=== PATIENT | female | born 1965 | race African-American/Black ===

== ENCOUNTER 2023-05-10 15:30 | Emergency (ER) | payer MEDICAID ==
[~2023-05-10] VITALS: Ht 165.1 cm; Wt 65.0 kg
[~2023-05-10 15:30] MED LIST: IBUPROFEN
[2023-05-10 15:40] VITALS: BP 139/91; PULSE 60; RESP 16; TEMP 98.8; O2SAT 99
[2023-05-10] MEDS ORDERED: SODIUM CHLORIDE 0.9% 1,000 ML IV ONE (16:15)
[2023-05-10] MEDS ORDERED: METOCLOPRAMIDE HCL 10MG/2ML VIAL IV ONE (18:30)
[2023-05-10] MEDS ORDERED: METOCLOPRAMIDE HCL 10MG/2ML VIAL IV NR (18:30)
[2023-05-10] MEDS ORDERED: MECLIZINE 25MG TABLET PO ONE (18:30)
[2023-05-10 18:42] LABS: CLARITY URINE CLEAR (CLEAR); COLOR URINE YELLOW (YELLOW); GLUCOSE URINE NEGATIVE (NEGATIVE); KETONES URINE TRACE (NEGATIVE); LEUKOCYTE ESTERASE URINE 1+ (NEGATIVE); NITRITE URINE NEGATIVE (NEGATIVE); OCCULT BLOOD URINE 3+ (NEGATIVE); PH URINE 6.5 (4.5-8.0); PROTEIN URINE TRACE (NEGATIVE); SPECIFIC GRAVITY URINE 1.017 (1.005-1.030)
[2023-05-10 18:45] LABS: SQUAMOUS EPITHELIAL CELL URINE 1+ /lpf (RARE/1+); YEAST URINE NONE SEEN
[2023-05-10] MEDS ORDERED: MECLIZINE 12.5MG TABLET PO NR (19:15)
[2023-05-10 19:34] LABS: BASOPHILS % 0.2 % (0.0-2.0); EOSINOPHILS % 0.1 % (0.0-5.0); HEMATOCRIT. 38.3 % (36.0-48.0); HEMOGLOBIN. 12.9 g/dL (12.0-16.0); LYMPHOCYTES % 13.5 % (20.0-50.0); MEAN CORPUSCULAR HEMOGLOBIN 31.5 pg (28.0-32.0); MEAN CORPUSCULAR HGB CONC 33.7 g/dL (31.0-37.0); MEAN CORPUSCULAR VOLUME 93.3 fL (81.0-99.0); MEAN PLATELET VOLUME 8.4 fl (7.4-10.4); MONOCYTES % 3.1 % (2.0-8.0); NEUTROPHILS % 83.1 % (40.0-76.0); PLATELET 253 x1000/uL (130-400); RED CELL DISTRIBUTION WIDTH 12.6 % (11.6-14.6); WHITE BLOOD COUNT 8.4 x1000/uL (4.5-11.0)
[2023-05-10 19:38] LABS: CHLORIDE 106 mEq/L (98-107); INDEX HEMOLYSI 1 (1-3); INDEX ICTERIC 1 (1-4); INDEX LIPEMIC 1 (1-3); POTASSIUM 4.1 mEq/L (3.5-5.1); SODIUM 140 mEq/L (136-145)
[2023-05-10 19:51] LABS: ALANINE AMINOTRANSFERASE 49 IU/L (13-61); ALBUMIN 4.2 g/dL (3.4-5.0); ASPARTATE AMINOTRANSFERASE 20 IU/L (15-37); BILIRUBIN TOTAL 0.6 mg/dL (0.1-1.0); CALCIUM 9.4 mg/dL (8.5-10.1); CARBON DIOXIDE 25 mEq/L (21-32); CREATININE 0.5 mg/dL (0.6-1.3); GLUCOSE 125 mg/dL (70-105); PROTEIN TOTAL 8.7 g/dL (6.0-8.3); TROPONIN I HIGH SENSITIVITY 43 ng/L (<54); UREA NITROGEN BLOOD 12 mg/dL (7-21)
[2023-05-10 20:03] LABS: BACTERIA URINE 1+
[2023-05-10 20:04] LABS: RBC URINE 15-25 /hpf (0-2)
[2023-05-10] MEDS ORDERED: MECL-264 PO (21:42)
== END 2023-05-11 00:54 | disposition home or self-care (01) ==
LOC: ER 15:30
DX: R42 Dizziness and giddiness (principal); R11.2 Nausea with vomiting, unspecified; E78.00 Pure hypercholesterolemia, unspecified; I10 Essential (primary) hypertension
CPT/HCPCS: 80053; 81003; 83690; 85025; 84484; 36415; 71045; 70450; 99284; J8597; J2765; J7030; Z7610 ×4